=== PATIENT | female | born 1980 | race Caucasian/White ===

== ENCOUNTER 2021-04-11 14:31 | Emergency (ER) | payer OTHER ==
[~2021-04-11 14:31] MED LIST: CYMBALTA60 MG PO; IBUPROFEN800 MG PO; LIORESAL TAB 1010 MG PO; MIRALAX17 GM PO; NAPROSYN500 MG PO; NORCO 5-325 TA1 EACH PO; SYNTHROID25 MCG PO; VISTARIL25 MG PO
[2021-04-11 15:51] LABS: HEMOGLOBIN 13.9 gm/dl (12.3-15.3); RED BLOOD COUNT 4.35 M/UL (4.00-5.10); WHITE BLOOD COUNT 7.6 K/UL (4.5-11.0)
[2021-04-11 16:12] LABS: BUN/CREATININE RATIO 27 (0-10)
[2021-04-11] MEDS ORDERED: FLAGYL 250 MG250 MG PO (16:39)
[2021-04-11] MEDS ORDERED: CIPRO500 MG PO (16:39)
== END 2021-04-11 16:58 | disposition home or self-care (01) ==
LOC: ER1 14:31
PROVIDERS: Emergency Medicine
DX: R19.7 Diarrhea, unspecified (principal); R11.10 Vomiting, unspecified
CPT/HCPCS: 80053; 81001; 83690; 85025; 87077; 87086; 87186; 96374; 99284; J2405; J7030